=== PATIENT | male | born 1995 | race Caucasian/White ===

== ENCOUNTER 2017-02-22 12:28 | Emergency (ER) | payer BC ==
[2017-02-22 15:24] VITALS: BP 135/75
--- NOTE | 2017-02-22 15:58 | UC ---
Lower Extremity/Ankle HPI - HPI Summary HPI Summary: Pt presents with left big toe pain s/p injury last night. He tells me that he was running and his left great toe caught the ground and bent under his foot. Had immediate pain. Still with pain today, but is able to ambulate. Has not been taking anything OTC for this. Denies numbness, tingling, or decreased ROM - History of Current Complaint Chief Complaint: UCLowerExtremity Stated Complaint: TOE INJURY Time Seen by Provider: 02/22/17 15:17 Hx Obtained From: Patient Onset/Duration: Sudden Onset Severity Initially: Moderate Severity Currently: Moderate Pain Intensity: 4 Pain Scale Used: 0-10 Numeric Aggravating Factor(s): Standing, Ambulation Alleviating Factor(s): Rest Able to Bear Weight: Yes - Allergies/Home Medications Allergies/Adverse Reactions: Allergies Allergy/AdvReac Type Severity Reaction Status Date / Time No Known Allergies Allergy Verified 02/22/17 15:25 PMH/Surg Hx/FS Hx/Imm Hx Previously Healthy: Yes - Surgical History Surgical History: Yes Surgery Procedure, Year, and Place: Rt WRSIT - [facility] REPAIR - Social History Occupation: Student Lives: With Family Alcohol Use: Weekly Substance Use Type: None Smoking Status (MU): Never Smoked Tobacco - Immunization History Most Recent Influenza Vaccination: 2017 Vaccination Up to Date: Yes Review of Systems Constitutional: Negative Skin: Negative Respiratory: Negative Cardiovascular: Negative Neurovascular: Negative Musculoskeletal: Other: - Pain left big toe Neurological: Negative All Other Systems Reviewed And Are Negative: Yes Physical Exam Triage Information Reviewed: Yes Appearance: Well-Appearing, No Pain Distress, Well-Nourished Vital Signs: Initial Vital Signs Temp 98 F 02/22/17 15:19 Pulse 57 02/22/17 15:19 Resp 20 02/22/17 15:19 BP 135/75 02/22/17 15:19 Pulse Ox 100 02/22/17 15:19 Vital Signs Reviewed: Yes Respiratory: Positive: Chest non-tender, Lungs clear, Normal breath sounds Cardiovascular: Positive: RRR, No Murmur, Pulses Normal, Brisk Capillary Refill - Left great toe Musculoskeletal: Positive: Strength Intact, ROM Intact, No Edema, Other: - TTP over dorsal aspect of left big toe and lateral aspect of great toe MTP. No obvious bony deformities. Neurological: Positive: Alert, Other: - Sensation intact left foot and all toes Psychological: Positive: Age Appropriate Behavior Skin: Positive: Other - No erythema, ecchymosis, or open wounds. Lower Extremity Course/Dx - Course Course Of Treatment: Toe XR: IMPRESSION: Questionable subchondral lucencies along the medial articulating junction of the left great toe metatarsal head and proximal phalanx could represent small osteochondral defects in the setting of trauma. Please correlate to the focality of the patient's pain. Toe was reji taped, foot was YARON wrapped, and post op shoe provided. I suspect he bruised this toe and have advised RICE and ibuprofen prn. He is established with an orthopedic provider at [facility] - if symptoms worsen or persist, i advised that he follow up with them after 1 week. - Differential Dx/Diagnosis Differential Diagnosis/HQI/PQRI: Contusion, Dislocation, Fracture (Closed), Sprain, Strain Provider Diagnoses: Left big toe strain Discharge - Discharge Plan Condition: Stable Disposition: HOME Patient Education Materials: Foot Contusion (ED) Referrals: Eusebia Almanza MD [Primary Care Provider] - Additional Instructions: If you develop a fever, shortness of breath, chest pain, new or worsening symptoms - please call your PCP or go to the ED. 1) Rest, Ice, and elevate your foot over the next 24-48hours 2) Use the post-op shoe as needed for comfort. May take ibuprofen 400mg every 6- 8 hours as needed for pain 3) Weight bearing as tolerated 4) If your symptoms worsen or persist greater than 7 days, please schedule a follow up appointment with your Orthopedic doctor.
--- NOTE | 2017-02-22 16:01 | RAD ---
INDICATION: Pain at the left metatarsal phalangeal joint after hyperflexion injury TECHNIQUE: 3 views of the left great toe were obtained. FINDINGS: At the medial proximal corner of the left great toe proximal phalanx there is mild relative subchondral lucency. At the medial distal aspect of the left great toe metatarsal there is a similar-appearing subchondral lucency. The remaining visualized bones are intact and appropriately aligned. IMPRESSION: Questionable subchondral lucencies along the medial articulating junction of the left great toe metatarsal head and proximal phalanx could represent small osteochondral defects in the setting of trauma. Please correlate to the focality of the patient's pain.
== END 2017-02-22 16:25 | disposition home or self-care (01) ==
LOC: UCEAST 12:28
DX: S96.912A Strain of unspecified muscle and tendon at ankle and foot level, left foot, initial encounter (principal); X50.1XXA Overexertion from prolonged static or awkward postures, initial encounter; Y93.02 Activity, running; Y92.9 Unspecified place or not applicable
CPT/HCPCS: 99213; G0463

== ENCOUNTER 2018-08-23 17:51 | Emergency (ER) | payer BC ==
--- NOTE | 2018-08-23 20:19 | ED ---
Abdominal Pain/Male - HPI Summary HPI Summary: This patient is a 23 year old M [place] [facility] [place] with a chief complaint of worsening epigastric and RUQ abdominal pain described as shooting and ache with an onset of 3-4 days that has progressed from intermittent to constant. Patient rates pain 3/10. Symptoms aggravated by eating a full meal, deep breathing, and walking. Symptoms alleviated by nothing. Patient states that the abdominal pain began as abdominal cramping and has progressed to shooting and aching abdominal pain. Patient describes the pain as a "pulled muscle that is shoots down a line down his mid abdomen." Patient denies nausea, vomiting, dysuria, hematuria, dizziness, lightheadedness. No previous abdominal surgeries. Patient has treated the pain with Aleve. - History of Current Complaint Chief Complaint: EDAbdPain Stated Complaint: HERNIA PER PT Time Seen by Provider: 08/23/18 19:55 Hx Obtained From: Patient Onset/Duration: Lasting Days - 3-4, Still Present Timing: Constant - Currently constant, prior was intermittent Severity Currently: Moderate Pain Intensity: 3 Pain Scale Used: 0-10 Numeric Location: Discrete At: RUQ, Epigastric Radiates: No Character: Other: - shooting and aching Aggravating Factor(s): Food - full meal, Movement, Deep Breaths Alleviating Factor(s): Nothing Associated Signs And Symptoms: Positive: Negative - denies nausea, vomiting, dysuria, hematuria, dizziness, lightheadedness - Allergies/Home Medications Allergies/Adverse Reactions: Allergies Allergy/AdvReac Type Severity Reaction Status Date / Time No Known Allergies Allergy Verified 08/23/18 18:25 PMH/Surg Hx/FS Hx/Imm Hx Previously Healthy: Yes Endocrine/Hematology History: Denies: Hx Diabetes, Hx Thyroid Disease Cardiovascular History: Denies: Hx Hypertension, Hx Pacemaker/ICD Respiratory History: Denies: Hx Asthma, Hx Chronic Obstructive Pulmonary Disease (COPD) GI History: Denies: Hx Ulcer Musculoskeletal History: Denies: Hx Rheumatoid Arthritis, Hx Osteoporosis Sensory History: Denies: Hx Hearing Aid Psychiatric History: Denies: Hx Panic Disorder - Surgical History Surgery Procedure, Year, and Place: Rt WRSIT - [facility] REPAIR Infectious Disease History: No Infectious Disease History: Denies: Hx Clostridium Difficile, Hx Hepatitis, Hx Human Immunodeficiency Virus (HIV), Hx of Known/Suspected MRSA, Hx Tuberculosis, Hx Known/Suspected VRE , Traveled Outside the [place] in Last 30 Days - Family History Known Family History: Positive: Other - Ulcers - Social History Alcohol Use: Weekly Hx Substance Use: No Substance Use Type: Reports: None Hx Tobacco Use: No Smoking Status (MU): Never Smoked Tobacco Review of Systems Positive: Chest Pain Positive: Abdominal Pain - RUQ and epigastric. Negative: Vomiting, Nausea Negative: no symptoms reported, dysuria, hematuria Neurological: Negative - dizziness, lightheadeness All Other Systems Reviewed And Are Negative: Yes Physical Exam - Summary Physical Exam Summary: Appearance: Well-appearing, Well-nourished, lying in bed comfortably Skin: Warm, dry, no obvious rash Eyes: sclera anicteric, no conjunctival pallor ENT: mucous membranes moist, pharynx appears normal Neck: Supple, nontender Respiratory: Clear to auscultation, no signs of respiratory distress Cardiovascular: Normal S1, S2. No murmurs. Normal distal pulses in tibial and radial bilaterally. Abdomen: Soft, nontender, normal active bowel sounds present Musculoskeletal: Normal, Strength/ROM Intact Neurological: A&Ox3, awake and alert, mentation is normal, speech is fluent and appropriate Psychiatric: affect is normal, does not appear anxious or depressed Triage Information Reviewed: Yes Vital Signs On Initial Exam: Initial Vitals Temp Pulse Resp BP Pulse Ox 98.8 F 61 16 145/66 99 08/23/18 18:22 08/23/18 18:22 08/23/18 18:22 08/23/18 18:22 08/23/18 18:22 Vital Signs Reviewed: Yes Diagnostics - Vital Signs Vital Signs Temp Pulse Resp BP Pulse Ox 08/23/18 18:22 98.8 F 61 16 145/66 99 - Laboratory Result Diagrams: 08/23/18 20:48 08/23/18 20:48 Lab Statement: Any lab studies that have been ordered have been reviewed, and results considered in the medical decision making process. - Ultrasound Gallbladder US Ultrasound Interpretation Completed By: Radiologist Summary of Ultrasound Findings: Per radiologist,. No sonographic findings to correlate with patient's symptomatology. ED physician has reviewed this report. Re-Evaluation - Re-Evaluation First Eval Re-Evaluation Time: 22:30 Comment: feels better and is ready to go home. discussed discharge plan. patient is agreeable to discharge Abdominal Pain Male Course/Dx - Course Course Of Treatment: This patient is a 23 year old M presenting to [facility] accompanied by mother with a chief complaint of worsening epigastric and RUQ abdominal pain described as shooting and ache with an onset of 3-4 days that has progressed from intermittent to constant. Patient rates pain 3/10. Symptoms aggravated by eating a full meal, deep breathing, and walking. Patient denies nausea, vomiting, dysuria, hematuria, dizziness, lightheadedness. Physical exam reveals no abnormalities. Test results show no abnormalities. Gallbladder ultrasound reveals per radiologist, no sonographic findings to correlate with patient's symptomatology. We discussed discharge with patient. Patient is agreeable with this plan. Patient will be discharged. Patient was told to follow up with Dr Radhames Cameron, primary care provider, and Dr. Devon Spain, medical doctor, if symptoms start to improve. - Diagnoses Provider Diagnoses: Non-ulcer dyspepsia Discharge - Sign-Out/Discharge Documenting (check all that apply): Patient Departure - discharge Patient Received Moderate/Deep Sedation with Procedure: No - Discharge Plan Condition: Good Disposition: HOME Prescriptions: Omeprazole CAP (NF) [Prilosec CAP* 20 MG] 20 mg PO DAILY #14 cap. Patient Education Materials: Gastritis (ED) Referrals: Chemo Cameron MD [Primary Care Provider] - Devon Spain MD [Medical Doctor] - Additional Instructions: If your symptoms start to improve over the next few days, continue the medication and make and appt with either your PCP or the GI doctor. You should be seen as soon as possible if the symptoms are not getting better. If the pain becomes severe and unrelenting, come back to the ED. - Billing Disposition and Condition Condition: GOOD Disposition: Home - Attestation Statements Document Initiated by Wilmeribe: Yes Documenting Scribe: Janae López Provider For Whom Jesse is Documenting (Include Credential): Antonio Saunders MD Scribe Attestation: Kenrick, Janae López, scribed for Antonio Saunders MD on 08/25/18 at 0403. Scribe Documentation Reviewed: Yes Provider Attestation: The documentation as recorded by the [email or web address], Janae López accurately reflects the service I personally performed and the decisions made by me, Antonio Saunders MD Status of Scribe Document: Viewed
[2018-08-23 20:57] LABS: ABS Eosinophils 0.1 10^3/ul (0-0.6); ABS Lymphocytes 2.2 10^3/ul (1.0-4.8); ABS Monocytes 0.5 10^3/ul (0-0.8); ABS Neutrophils 5.1 10^3/ul (1.5-7.7); Eosinophil % 1.3 %; Hematocrit 45 % (42-52); Hemoglobin 15.2 g/dL (14.0-18.0); Lymphocyte % 28.2 %; Mean Corpuscular HGB Conc 34 g/dL (31-36); Mean Corpuscular Hemoglobin 31 pg (27-31); Mean Corpuscular Volume 92 fL (80-94); Mean Platelet Volume 8.1 fL (7.4-10.4); Nucleated Red Blood Cells % 0.1; Platelet Count 290 10^3/uL (150-450); Red Blood Count 4.89 10^6 /uL (4.18-5.48); Red Cell Distribution Width 13 % (10-15)
[2018-08-23 21:18] LABS: Albumin 4.7 g/dL (3.2-5.2); Albumin/Globulin Ratio 1.5 (1-3); Calcium 9.8 mg/dL (8.6-10.3); EGFR African American 97.1 (>60); EGFR Non-African American 80.3 (>60); Globulin 3.1 g/dL (2-4); Potassium 4.1 mmol/L (3.5-5.0); Total Bilirubin 0.6 mg/dL (0.2-1.0); Total Protein 7.8 g/dL (6.4-8.9)
[2018-08-23 22:34] VITALS: BP 136/75
== END 2018-08-23 22:34 | disposition home or self-care (01) ==
LOC: ED 17:51
DX: R10.13 Epigastric pain (principal)
CPT/HCPCS: 36415; 76705; 80053; 83690; 85025; 99283